=== PATIENT | male | born 1980 | race Two or more races ===

== ENCOUNTER 2017-02-11 08:30 | Emergency (ER) | payer OTHER ==
[2017-02-11 08:47] VITALS: BP 120/78; PULSE 55; RESP 16; TEMP 97.9; O2SAT 97
--- NOTE | 2017-02-11 08:53 | UCPHY ---
H & P Patient Type: New Chief Complaint Nursing Narrative: injury to l eye yesterday. swelling under eye and c/o numbness to area. denies visual problems Time Seen by Provider: 02/11/17 08:38 HPI/ROS: Chief complaint: Left eye injury and face numbness HPI: 36-year-old male was sparring last night and sustained injury to the periorbital region of his left eye from an elbow. He did not have a loss of consciousness. He is complaining of swelling below his left eye with numbness to his left cheek and left upper teeth. No headache. No nausea. No confusion. No neck pain. No numbness or tingling. No vision or hearing changes. He does not feel he has any dental malocclusion. No difficulty chewing or swallowing. ROS: 10 point Review of Systems is negative except as noted in the HPI. Past medical history: None Medications: None Allergies: None Social history: Nonsmoking, rare alcohol Physical exam: General: Awake, alert, no acute distress Eyes: Visual acuity is 20/13 bilaterally, is no hyphema. Pupils are equal round reactive light accommodation. Extraocular movements are intact and normal. Normal eye exam. Face: He has some infraorbital edema and ecchymosis below his left eye. There is no proptosis. He has anesthesia in the distribution of the left infraorbital nerve. Mouth: No malocclusion. Neck: Supple, full range of motion without pain Neuro: He has a deficit in the branch of the trigeminal nerve as described above, otherwise remainder of cranial nerves 2-12 are intact. Has normal strength and sensation bilateral upper lower extremities. - Medical/Surgical History Other PMH: denies - Family History Significant Family History: No pertinent family hx - Social History Smoking Status: Never smoked Constitutional: Initial Vital Signs Temperature (C) 36.6 C 02/11/17 08:43 Heart Rate 55 L 02/11/17 08:43 Respiratory Rate 16 02/11/17 08:43 Blood Pressure 120/78 02/11/17 08:43 O2 Sat (%) 97 02/11/17 08:43 O2 Delivery Mode Room Air Allergies/Adverse Reactions: No Known Allergies Allergy (Unverified 02/11/17 08:42) Home Medications: Medication Instructions Recorded NK [No Known Home Meds] 02/11/17 Medical Decision Making ED Course/Re-evaluation: Patient has a contusion over the left infraorbital region with a 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 He has no other injuries. He has not have any stigmata of concussion at this time. I have explained the likely healing process of his neurapraxia. He will follow up with primary care physician in 4-5 days for re-evaluation. Departure - Departure Disposition: Home, Routine, Self-Care Clinical Impression: Neurapraxia, Periorbital contusion Condition: Good Instructions: Neurapraxia (ED), Facial Contusion (ED) Additional Instructions: Follow up with primary care physician in 4-5 days if symptoms are not improving. Referrals: NONE *PRIMARY CARE P,. [Primary Care Provider] - As per Instructions Debbi Hunter MD [[facility] [place] [facility] [place] - As per Instructions - PQRS PQRS Measurement: NA
== END 2017-02-11 08:55 | disposition home or self-care (01) ==
LOC: CED 08:30
DX: S00.12XA Contusion of left eyelid and periocular area, initial encounter (principal); S04.52XA Injury of facial nerve, left side, initial encounter; W50.1XXA Accidental kick by another person, initial encounter; Y93.75 Activity, martial arts
CPT/HCPCS: G0463-PO